=== PATIENT | female | born 1960 | race American Indian/Alaskan Native ===

== ENCOUNTER 2018-06-27 19:13 | Emergency (ER) | payer BC, OTHER ==
[2018-06-27] MEDS ORDERED: Acetaminophen 325 MG Tab PO ONE (19:43)
[2018-06-27] MEDS ORDERED: Sodium Chloride 0.9% 1,000 ML IV ONE (19:46)
--- NOTE | 2018-06-27 19:46 | EDM.PDOC ---
ED HPI GENERAL MEDICAL PROBLEM - General Chief Complaint: Fever Stated Complaint: FEELING SICK [phone] Time Seen by Provider: 06/27/18 19:43 Source of Information: Reports: Patient History Limitations: Reports: No Limitations - History of Present Illness INITIAL COMMENTS - FREE TEXT/NARRATIVE: been having fever few days went to clinic given Rx but not any better. ate scrambled eggs this am and vomited all, still feverish with now sore throat too. - Related Data Allergies Allergy/AdvReac Type Severity Reaction Status Date / Time Penicillins Allergy Unknown Cannot Verified 06/27/18 20:00 Remember omeprazole Allergy Cannot Verified 06/27/18 20:00 Remember Home Meds: Home Meds Ascorbic Acid [C-1000] 1 tab PO DAILY 02/22/15 [History] Cholecalciferol (Vitamin D3) [Vitamin D3] 1 tab PO DAILY 02/22/15 [History] Multivitamin [One Daily] 1 tab PO DAILY 02/22/15 [History] Past Medical History Other Gastrointestinal History: CHOLEYCYSTITIS; INGUINAL HERNIA Other Psychiatric History: TOBACCO HABITUATION Endocrine/Metabolic History: Reports: Diabetes, Type II Other Dermatologic History: BARTHOLIN CYST ABCESSED I & D - Past Surgical History Other Female Surgeries/Procedures: X4; BILAT SALPINGECTOMY ED ROS GENERAL - Review of Systems Review Of Systems: ROS reveals no pertinent complaints other than HPI. ED EXAM, GENERAL - Physical Exam Exam: See Below Exam Limited By: No Limitations General Appearance: Alert, WD/WN, Mild Distress, Other (discomfort) Ears: Hearing Grossly Normal Throat/Mouth: Normal Voice, No Airway Compromise, Inflammation Head: Atraumatic Neck: Non-Tender, Full Range of Motion Respiratory/Chest: No Respiratory Distress Cardiovascular: Regular Rate, Rhythm GI/Abdominal: Soft, Non-Tender Neurological: Alert, Oriented, Normal Cognition, Normal Gait, No Motor/Sensory Deficits Psychiatric: Flat Affect Skin Exam: Warm, Dry, Normal Color Lymphatic: No Adenopathy Course - Vital Signs Last Recorded V/S: Last Vital Signs Temp 38.9 C H 06/27/18 19:23 Pulse 125 H 06/27/18 19:23 Resp 18 06/27/18 19:23 BP 127/78 06/27/18 19:23 Pulse Ox 94 L 06/27/18 19:23 - Orders/Labs/Meds Orders: Active Orders 24 hr Category Date Time Status CULTURE BLOOD [BC] Stat Lab 06/27/18 19:32 Received CULTURE STREP A CONFIRMATION [] Stat Lab 06/27/18 19:33 Results STREP SCRN A RAPID W CULT CONF [] Stat Lab 06/27/18 19:33 Results Sodium Chloride 0.9% [Normal Saline] 1,000 ml Med 06/27/18 19:46 Active IV .BOLUS Medication Orders Sodium Chloride (Normal Saline) 1,000 mls @ 999 mls/hr IV .BOLUS ONE Stop: 06/27/18 20:46 Last Admin: 06/27/18 19:48 Dose: 999 mls/hr Labs: Laboratory Tests 06/27/18 06/27/18 06/27/18 Range/Units 19:32 19:32 19:32 WBC 11.4 H (5.0-10.0) 10^3/uL RBC 5.25 (4.2-5.4) 10^6/uL Hgb 15.4 (12.0-16.0) g/dL Hct 45.7 (37.0-47.0) % MCV 87.0 (80-100) fL MCH 29.3 (27.0-34.0) pg MCHC 33.7 (33.0-35.0) g/dL Plt Count 201 (150-450) 10^3/uL Neut % (Auto) 87.2 H (42.2-75.2) % Lymph % (Auto) 6.2 L (20.5-50.1) % Hinds % (Auto) 5.7 (2-8) % Eos % (Auto) 0.7 L (1.0-3.0) % Baso % (Auto) 0.2 (0.0-1.0) % Sodium 133 L (135-145) mmol/L Potassium 3.8 (3.6-5.0) mmol/L Chloride 100 L (101-111) mmol/L Carbon Dioxide 20.0 L (21.0-31.0) mmol/L Anion Gap 16.8 BUN 14 (7-18) mg/dL Creatinine 0.7 (0.6-1.3) mg/dL Est Cr Clr Drug Dosing 77.49 mL/min Estimated GFR (MDRD) > 60 BUN/Creatinine Ratio 20.00 Glucose 146 H (74-105) mg/dL Lactic Acid 1.7 (0.5-2.2) mmol/L Calcium 9.0 (8.4-10.2) mg/dl Total Bilirubin 0.7 (0.2-1.0) mg/dL AST 52 H (10-42) IU/L ALT 67 H (10-60) IU/L Alkaline Phosphatase 80 (42-121) IU/L Total Protein 7.5 (6.7-8.2) g/dl Albumin 4.2 (3.2-5.5) g/dl Globulin 3.3 Albumin/Globulin Ratio 1.27 Meds: Medications Generic Name Dose Route Start Last Admin Trade Name Freq PRN Reason Stop Dose Admin Sodium Chloride 1,000 mls @ 999 mls/hr 06/27/18 19:46 06/27/18 19:48 Normal Saline IV 06/27/18 20:46 999 mls/hr .BOLUS ONE Administration Discontinued Medications Generic Name Dose Route Start Last Admin Trade Name Freq PRN Reason Stop Dose Admin Acetaminophen 650 mg 06/27/18 19:43 06/27/18 19:48 Tylenol PO 06/27/18 19:44 650 mg NOW ONE Administration - Re-Assessments/Exams Free Text/Narrative Re-Assessment/Exam: 06/27/18 20:38 results discussed with pt who is feeling better presently Departure - Departure Time of Disposition: 20:39 Disposition: Home, Self-Care 01 Condition: Good Clinical Impression: Gastroenteritis and colitis, viral - Discharge Information Instructions: Viral Gastroenteritis, Adult, [id number] Forms: ED Department Discharge Additional Instructions: 1) avoid solid foods next 3 to 4 days 2) have popsicle, jello, juice 3) follow up at clinic - My Orders Last 24 Hours: My Active Orders 06/27/18 19:32 CULTURE BLOOD [BC] Stat 06/27/18 19:33 CULTURE STREP A CONFIRMATION [RM] Stat STREP SCRN A RAPID W CULT CONF [RM] Stat 06/27/18 19:46 Sodium Chloride 0.9% [Normal Saline] 1,000 ml IV .BOLUS - Assessment/Plan Last 24 Hours: My Active Orders 06/27/18 19:32 CULTURE BLOOD [BC] Stat 06/27/18 19:33 CULTURE STREP A CONFIRMATION [RM] Stat STREP SCRN A RAPID W CULT CONF [RM] Stat 06/27/18 19:46 Sodium Chloride 0.9% [Normal Saline] 1,000 ml IV .BOLUS
[2018-06-27 20:04] LABS: ANION GAP 16.8; CHLORIDE,CL 100 mmol/L (101-111); SODIUM,NA 133 mmol/L (135-145)
[2018-06-27 20:53] VITALS: BP 106/86
== END 2018-06-27 20:50 | disposition home or self-care (01) ==
LOC: DL.ED 19:13
DX: A08.4 Viral intestinal infection, unspecified (principal); E11.9 Type 2 diabetes mellitus without complications; Z79.899 Other long term (current) drug therapy; Z88.0 Allergy status to penicillin; Z88.8 Allergy status to other drugs, medicaments and biological substances
CPT/HCPCS: 36415; 80053; 83605; 85025; 87040; 87081; 87430; 87804; 96360; 99283; A9270; J7030

== ENCOUNTER 2025-01-06 05:17 | Day surgery (SDC) | payer BC, MEDICAID, OTHER ==
[2025-01-06] MEDS ORDERED: Propofol 200 MG/20 ML SDV ONE ×2 (06:01→07:06)
[2025-01-06] MEDS: Lactated Ringers 1,000 ML IV SCH (06:21)
[2025-01-06 07:23] VITALS: BP 128/73; PULSE 67
== END 2025-01-06 08:11 | disposition home or self-care (01) ==
LOC: DL.ENDO 05:17
PROVIDERS: ATTEND Internal Medicine Gastroenterology
DX: Z12.11 Encounter for screening for malignant neoplasm of colon (principal); D12.5 Benign neoplasm of sigmoid colon; D12.0 Benign neoplasm of cecum; E66.09 Other obesity due to excess calories; E11.9 Type 2 diabetes mellitus without complications; Z88.8 Allergy status to other drugs, medicaments and biological substances; Z88.0 Allergy status to penicillin; Z80.0 Family history of malignant neoplasm of digestive organs; Z87.891 Personal history of nicotine dependence; Z79.84 Long term (current) use of oral hypoglycemic drugs; Z79.899 Other long term (current) drug therapy
CPT/HCPCS: 00811; 45385; 82947; J7120